=== PATIENT | female | born 1950 | race Two or more races ===

== ENCOUNTER → 2024-02-07 12:48 | Outpatient (REF) | payer MEDICARE, SELFPAY | LOC: WDC 12:48 | PROVIDERS: ATTENDING PHYSICIAN Family Medicine | DX: Z12.31 Encounter for screening mammogram for malignant neoplasm of breast (principal) | CPT/HCPCS: 77063; 77067 ==

== ENCOUNTER → 2025-02-08 11:36 | Outpatient (REF) | payer MEDICARE, SELFPAY | LOC: WDC 11:36 | PROVIDERS: ATTENDING PHYSICIAN Family Medicine | DX: Z12.31 Encounter for screening mammogram for malignant neoplasm of breast (principal) | CPT/HCPCS: 77063; 77067 ==